=== PATIENT | male | born 1970 | race Caucasian/White ===

== ENCOUNTER 2023-04-07 09:04 | Emergency (ER) | payer BC ==
[~2023-04-07] VITALS: Ht 185.4 cm; Wt 87.0 kg
[2023-04-07 09:08] VITALS: O2SAT 100
[2023-04-07] MEDS ORDERED: LIDO700A15 TP (11:41)
[2023-04-07] MEDS ORDERED: NAPR-1176 MT (11:41)
[2023-04-07] MEDS: KETOROLAC 15MG/ML VIAL IM ONE (11:52)
[2023-04-07 11:53] VITALS: BP 131/76; PULSE 72; RESP 14; TEMP 98.7
== END 2023-04-07 11:55 | disposition home or self-care (01) ==
LOC: ER 09:04
DX: S80.02XA Contusion of left knee, initial encounter (principal); M54.9 Dorsalgia, unspecified; Z98.890 Other specified postprocedural states; V98.8XXA Other specified transport accidents, initial encounter; Y93.89 Activity, other specified; Y92.89 Other specified places as the place of occurrence of the external cause; Y99.8 Other external cause status
CPT/HCPCS: 73564; 96372; 99283; J1885; Z7610